=== PATIENT | male | born 1975 | race Caucasian/White ===

== ENCOUNTER 2021-03-30 20:11 | Inpatient (IN) | payer OTHER ==
[~2021-03-30] VITALS: Ht 180.3 cm; Wt 104.3 kg
[2021-03-30 21:23] LABS: BASOPHIL 0.5 % (0-2); EOSINOPHIL 4.3 % (0-5); HCT 29.9 % (42.0-52.0); HGB 9.9 g/dl (13.2-18.0); LYMPHOCYTE 34.9 % (15-48); MCH 30.1 pg (25.0-31.0); MCHC 33.1 g/dL (32.0-36.0); MCV 90.9 fL (78.0-100.0); MONOCYTE 7.1 % (0-12); MPV 9.4 fL (6.0-9.5); NEUTROPHIL 52.7 % (41-80); NRBC 0; PLT 252 K/uL (150-400); RBC 3.29 M/uL (4.70-6.00); WBC 6.5 K/uL (4.0-10.5)
[2021-03-30 21:41] LABS: ALBUMIN 2.7 g/dL (3.4-5.0); BILIRUBIN - TOTAL 0.2 mg/dL (0.2-1.0); BUN/CREAT RATIO (CALC) 27.1 RATIO; CREATININE 0.85 mg/dL (0.67-1.17); GLOBULIN (CALCULATION) 4.2 g/dL; POTASSIUM 4.9 mmol/L (3.5-5.1); TOTAL PROTEIN 6.9 g/dL (6.4-8.2)
[2021-03-30 23:41] LABS: CORONAVIRUS 2019 SARS-COV-2 NEGATIVE (NEGATIVE); INFLUENZA A NAA NEGATIVE (NEGATIVE)
[2021-03-30] MEDS ORDERED: METFORMIN HCL500 MG PO (23:51)
[2021-03-30] MEDS ORDERED: OMEPRAZOLE 20MG20 MG PO (23:53)
[2021-03-30] MEDS ORDERED: AMLODIPINE BESYL5 MG PO (23:53)
[2021-03-30] MEDS ORDERED: LANTUS **100 UNITS/ SC (23:56)
[2021-03-31 04:04] LABS: BILIRUBIN NEGATIVE (NEGATIVE); BLOOD TRACE-INTACT Ery/uL (NEGATIVE); CLARITY CLEAR (CLEAR); COLOR YELLOW (YELLOW); GLUCOSE (U) NORMAL (NORMAL); LEUKOCYTES NEGATIVE Leu/uL (NEGATIVE); NITRITE NEGATIVE (NEGATIVE); PROTEIN 1+ mg/dL (NEGATIVE); SPECIFIC GRAVITY >=1.030 (1.001-1.030); UROBILINOGEN 0.2 mg/dL (0.2-1.0); pH 5.5 (5.0-9.0)
[2021-03-31 04:15] LABS: BACTERIA TRACE; MUCOUS MODERATE
[2021-03-31 06:21] LABS: BASOPHIL 0.5 % (0-2); EOSINOPHIL 6.1 % (0-5); HCT 32.1 % (42.0-52.0); HGB 10.2 g/dl (13.2-18.0); LYMPHOCYTE 43.3 % (15-48); MCH 29.3 pg (25.0-31.0); MCHC 31.8 g/dL (32.0-36.0); MCV 92.2 fL (78.0-100.0); MONOCYTE 8.8 % (0-12); MPV 9.3 fL (6.0-9.5); NEUTROPHIL 41.1 % (41-80); NRBC 0; PLT 260 K/uL (150-400); RBC 3.48 M/uL (4.70-6.00); WBC 5.8 K/uL (4.0-10.5)
[2021-03-31 06:43] LABS: ALBUMIN 2.6 g/dL (3.4-5.0); BILIRUBIN - TOTAL 0.2 mg/dL (0.2-1.0); BUN/CREAT RATIO (CALC) 28.8 RATIO; CREATININE 0.73 mg/dL (0.67-1.17); GLOBULIN (CALCULATION) 3.4 g/dL; MAGNESIUM 1.8 mg/dL (1.8-2.4); PHOSPHORUS 3.3 mg/dL (2.6-4.7); POTASSIUM 4.9 mmol/L (3.5-5.1)
[2021-04-01 05:51] LABS: BASOPHIL 0.6 % (0-2); EOSINOPHIL 6.6 % (0-5); HCT 31.4 % (42.0-52.0); HGB 10.1 g/dl (13.2-18.0); LYMPHOCYTE 51.3 % (15-48); MCH 29.4 pg (25.0-31.0); MCHC 32.2 g/dL (32.0-36.0); MCV 91.3 fL (78.0-100.0); MONOCYTE 6.2 % (0-12); MPV 9.2 fL (6.0-9.5); NEUTROPHIL 35.1 % (41-80); NRBC 0; PLT 251 K/uL (150-400); RBC 3.44 M/uL (4.70-6.00); RDW 12.8 % (11.5-14.0)
[2021-04-01 06:10] LABS: CREATININE 0.64 mg/dL (0.67-1.17); POTASSIUM 4.5 mmol/L (3.5-5.1)
--- NOTE | 2021-04-02 10:20 | NUR ---
46 YEAR OLD MALE PATIENT ADMITTED WITH TRENCH FOOT. HOMELESS, LIVES IN A TENT. FEET WERE WET FOR APPROXIMATELY 3 DAYS. HAS HX OF DIABETES, HTN, GERD, SMOKER, RIGHT 3RD TOE AMPUTATION SEVERAL MONTHS AGO AT [facility]. DR. FLORES WAS CONSULTED AND BETADINE WAS ORDERED TO DIABETIC FOOT ULCERS. AGREE WITH THIS RECOMMENDATION FROM WOUND CARE CONSULTATION.
--- NOTE | 2021-04-03 12:07 | NUR ---
PT HAS CHOSEN TO GO TO [facility] TO COMPLETE HIS IV ABX. [facility] HAS ACCEPTED PT. PER DR. CARREON THE MIDLINE WILL BE PUT IN THIS AFTERNOON AND PT CAN D/C TO [facility].
[2021-04-03] MEDS ORDERED: NORCO 5-325 TA1 EACH PO (16:24)
[2021-04-03] MEDS ORDERED: HUMULIN R100 UNIT/2 SC (16:24)
[2021-04-03] MEDS ORDERED: METFORMIN HCL850 MG PO (16:24)
[2021-04-03] MEDS ORDERED: VANCO 2 GR2 GM/500 M IV (16:25)
[2021-04-03] MEDS ORDERED: LEVAQUIN500 MG PO (16:25)
--- NOTE | 2021-04-03 16:56 | NUR ---
04/03/21 1600 PROCEDURE EXPLAINED TO PATIENT. PT DRAPED AND PREPPED IN STERILE FASHION. THE LEFT UPPER ARM BASILIC VEIN WAS VISUALIZED USING THE SITE RITE 6. THE AREA WAS NUMBED WITH 1% LIDOCAINE 1CC. A 21GA NEEDLE WAS USED. GOOD BLOOD RETURN WAS NOTED. THE GUIDE WIRE WOUND NOT THREAD, ATTEMPTED USING STERILE TECHNIQUE AND THE SAME ARM ON ANOTHER SITE. THE GUIDE WIRE STILL WOULD NOT THREAD. SWITCHED TO THE RIGHT ARM MAINTAINING STERILITY. THE SITE RITE 6 WAS USED. A BASILIC VEIN WAS VISUALIZED, WITH THE ASSISTANCE OF Alex ARAUZ RN. THE AREA WAS NUMBED AND A 21 GA NEEDLE WAS USED. AGAIN THE GUIDE WIRE WOULD NOT THREAD. SWITHCHING TO THE LEFT SIDE AGAIN, THE GUIDE WIRE WOULD NOT THREAD. PROCEDURE ABORTED. REPORT TO Laurel RAPHAEL RN. DR LAURI MATHIS.
--- NOTE | 2021-04-04 18:24 | NUR ---
CALL AND SPOKE WITH DOM AT [facility] AND INFORMED THAT PATIENT NEEDS TO SEE DR FLORES WITH RACHAEL AND LILLIE IN ABOUT A WEEK
== END 2021-04-04 18:10 | DRG 923 ==
LOC: FER 20:11 → FMS 22:05
PROVIDERS: Allergy & Immunology Allergy; Nurse Practitioner; Nurse Practitioner Family; ADMIT Internal Medicine
PROC: 0HDMXZZ Extraction of Right Foot Skin, External Approach (ICD-10-PCS; principal; 2021-03-31)
DX: T69.022A Immersion foot, left foot, initial encounter (principal); L03.115 Cellulitis of right lower limb; T69.021A Immersion foot, right foot, initial encounter; B95.2 Enterococcus as the cause of diseases classified elsewhere; E11.621 Type 2 diabetes mellitus with foot ulcer; L97.519 Non-pressure chronic ulcer of other part of right foot with unspecified severity; E11.65 Type 2 diabetes mellitus with hyperglycemia; L97.529 Non-pressure chronic ulcer of other part of left foot with unspecified severity; I10 Essential (primary) hypertension; Z79.4 Long term (current) use of insulin; Z59.0 Homelessness; F12.90 Cannabis use, unspecified, uncomplicated; F17.210 Nicotine dependence, cigarettes, uncomplicated; Z83.3 Family history of diabetes mellitus; Z20.822 Contact with and (suspected) exposure to COVID-19
CPT/HCPCS: 36415; 71045; 73630; 73718; 80048; 80053; 80202; 81001; 82962; 83036; 83605; 83735; 84100; 84145; 85025; 87040; 94010; C1751; J1650; J1956; J2543; J3370; J7030; J7040; U0002